=== PATIENT | male | born 1985 | race Caucasian/White ===

== ENCOUNTER 2019-01-16 23:11 | Emergency (ER) | payer OTHER ==
[~2019-01-16] VITALS: Wt 91.1 kg
--- NOTE | 2019-01-17 01:13 | ERD ---
ER Documentation Chief Complaint Chief Complaint LAC OVER RIGHT EYEBROW S/P SPORTS INJURY HPI 33-year-old male presents with laceration above his right eyebrow after he was playing soccer and hit heads with another player. No loss of consciousness. No vomiting. He continued to finish out the game afterwards. Unsure of his last tetanus vaccination. Pain is mild. ROS All systems reviewed and are negative except as per history of present illness. FmHx Family History: No diabetes Physical Exam Vitals Vital Signs Date Temp Pulse Resp B/P (MAP) Pulse Ox O2 O2 Flow FiO2 Time Delivery Rate 01/16/19 99.4 115 18 145/85 97 23:14 (105) Physical Exam INITIAL VITAL SIGNS: Reviewed by me GENERAL: Awake, alert and oriented x 4, well appearing, nontoxic, speaking in full sentences. No acute distress HEAD: Atraumatic, right eyebrow laceration linear approximately 2 inches in length NECK: Supple. No masses. Full range of motion. No meningismus. No midline tenderness. EYES: EOMI. PERRL.. RESPIRATORY: Clear to auscultation bilaterally. Symmetric chest wall rise. No wheezing or rales. No accessory muscle use. CV: Regular rate and rhythm. No murmurs, rubs, or gallops. Neuro: M/S: Alert and oriented Face: EOMI, face and pharynx with normal sensation and function Motor: Normal strength throughout Sensation: Normal sensation throughout Speech: Normal Cerebel: Normal coordination Normal gait Normal finger to nose DTR: 2+ and symmetric upper/lower extremities Results 24 hrs Current Medications Medications Dose Sig/Edmund Start Time Status Last (Trade) Ordered Route PRN Stop Time Admin Dose Reason Admin Diphtheria/ 0.5 ml ONCE ONCE 01/17/19 Tetanus/Acell IM* 01:30 Pertussis 01/17/19 01:31 (Adacel) Neomycin/ 1 applic ONCE ONCE 01/17/19 Polymyxin/ TOP 01:30 Bacitracin 01/17/19 01:31 (Neosporin Topical Oint) Procedures/MDM The skin edges of the laceration were infiltrated with 1% lidocaine . The laceration was irrigated with copious amounts of normal saline. The wound was prepped with Betadine. On examination under direct light, there was no foreign body seen. The laceration was repaired with simple interrupted sutures. After repair, there was no continuing bleeding on repair and there did not appear to be any complication related to repair. The patient tolerated the procedure well and the wound was appropriately dressed and bandaged. I recom mended the patient return in 2 days for a wound check and 7-10 days for removal of sutures. Tetanus vaccination given. Patient counseled regarding my diagnostic impression and care plan. Prior to discharge all questions answered. Pt agrees with treatm ent plan and understands strict return precautions. Pt is instructed to follow up with primary care provider within 24-48 hours. Precautionary instructions provided including instructions to return to the ER if not improving or for any worsening or changing symptoms or concerns. Departure Diagnosis: Primary Impression: Laceration Condition: Stable RONEY CABELLO PA-C Jan 17, 2019 01:13
[2019-01-17] MEDS ORDERED: DIPHTH/TET/ACEL PERTUSS (ADULT) 0.5 ML VIAL IM* ONE (01:30)
[2019-01-17] MEDS ORDERED: NEOMYC/POLYMYX/BACIT 30 GM OINT TOP ONE (01:30)
[2019-01-17 02:01] VITALS: BP 142/85; PULSE 98; RESP 16
== END 2019-01-17 02:19 | disposition home or self-care (01) ==
LOC: FTE 23:11 → EDBD 23:11 → FTE 01-17 02:19
DX: S01.111A Laceration without foreign body of right eyelid and periocular area, initial encounter (principal); W50.0XXA Accidental hit or strike by another person, initial encounter; Y92.322 Soccer field as the place of occurrence of the external cause; Z23 Encounter for immunization
CPT/HCPCS: 90471; 90715